=== PATIENT | female | born 1960 | race Caucasian/White ===

== ENCOUNTER → 2017-06-01 | Outpatient (CLI) | payer MEDICARE, OTHER ==
--- NOTE | ~2017-06-01 | MY11 ---
[facility] A Service of [facility] RADIOLOGY TEXT RESULTS PATIENT: TAMEKA WILKINS LOCATION: [facility] : 62 UNIT #: [id number] AGE: [address]: Tameka Poe MD SEX: F ORDER DR: [id number] [address] [id number] O MR#: [id number] Acc #: [id number] NAME: TAMEKA WILKINS : 1960 SEX: F STUDY DATE/TIME: 06/01/2017 11:26 UNIT: [facility] ROOM: STUDY DESCRIPTION: MY Mammogram Screening Dig Zaid Attending Physician: Tameka Poe M.D. Referring Physician: Tameka Poe M.D. Ordering Physician: Tameka Poe M.D. Primary Care Physician: Tameka Poe M.D. MEDICAL IMAGING REPORT This report is preliminary unless electronic signature is present. EXAM Bilateral digital screening mammogram with CAD DATE: 06/01/2017 HISTORY Positive family history breast cancer in her mother. No personal history of breast cancer or current complaints. COMPARISON Bilateral screening mammogram 06/01/2015, 07/16/2012, 07/19/2009. FINDINGS CC and MLO views were obtained of each breast utilizing digital technique and reviewed with an FDA-approved CAD device. The patient has cerebral palsy and is confined in a wheelchair. The current images are suboptimal but the best obtainable, given the patient's condition. A loop recorder below P recorder device projects over the medial hemisphere left breast on the CC view. Heterogeneously dense fibroglandular tissue is present bilaterally. No definite developing new nodule or mass is seen. There are scattered calcifications within each breast which appear roughly stable and benign. Benign intramammary lymph node with fatty hilum is seen in the superior right breast posterior hemisphere on the MLO view, and also appears stable. No definite architectural distortion. IMPRESSION [facility] A Service of [facility] RADIOLOGY TEXT RESULTS PATIENT: TAMEKA WILKINS LOCATION: [facility] : 62 UNIT #: [id number] AGE: [address]: Tameka Poe MD SEX: F ORDER DR: 1. BIRADS 2. Benign findings. 2. Limited examination secondary to patient's physical status. These are the best images obtainable. 3. Routine bilateral screening mammogram recommended 1 year. Patients over the age of 40 are entered into a reminder system with target due date for the next mammogram. A result letter will also be sent to the patient. BIRADS: 2 - benign findings Dictated by... Shaila Otero M.D. THIS IS AN ELECTRONICALLY VERIFIED REPORT Shaila Otero M.D. at 06/05/2017 1:52 PM [facility]/ras TD: 06/04/2017 10:16 JOB #: [id number] MEDICAL IMAGING REPORT Page 1 of 1
== END | disposition home or self-care (01) ==
LOC: SMAM 10:51
DX: Z12.31 Encounter for screening mammogram for malignant neoplasm of breast (principal); Z80.3 Family history of malignant neoplasm of breast
CPT/HCPCS: G0202